=== PATIENT | female | born 1960 | race Hispanic/Latino ===

== ENCOUNTER 2020-09-10 13:19 | Outpatient (CLI) | payer OTHER | END 2020-09-10 13:20 | disposition home or self-care (01) | LOC: PF 13:19 | PROVIDERS: ATTEND Internal Medicine | DX: R06.02 Shortness of breath (principal); M25.50 Pain in unspecified joint; D89.9 Disorder involving the immune mechanism, unspecified; G96.9 Disorder of central nervous system, unspecified; L94.9 Localized connective tissue disorder, unspecified | CPT/HCPCS: 94010; 94729 ==